=== PATIENT | male | born 1975 | race American Indian/Alaskan Native ===

== ENCOUNTER 2017-08-06 19:31 | Emergency (ER) | payer MEDICAID ==
[2017-08-06 20:27] VITALS: BP 156/86; PULSE 88; RESP 18; TEMP 98.4
[2017-08-06 20:28] VITALS: O2SAT 97
--- NOTE | 2017-08-06 20:28 | C.PDOC ---
History Of Present Illness 42 year old male with PMHx of migraines presents to the ED c/o intermittent headaches that mostly occur in the morning after her wakes up. Patient also c/o bilateral upper back pain. Patient has not taken any medication for the pain. Patient denies URI symptoms, recent travel, photophobia, neck pain, blurry vision, weakness, numbness. Time Seen by Provider: 08/06/17 19:55 Chief Complaint (Nursing): Back Pain History Per: Patient History/Exam Limitations: no limitations Onset/Duration Of Symptoms: Days Current Symptoms Are (Timing): Still Present Quality Of Discomfort: "Pain" Severity: None Associated Symptoms: None Recent travel outside of the [place]: No Additional History Per: Patient Past Medical History Reviewed: Historical Data, Nursing Documentation, Vital Signs Vital Signs: Last Vital Signs Temp 98.4 F 08/06/17 20:27 Pulse 88 08/06/17 20:27 Resp 18 08/06/17 20:27 BP 156/86 H 08/06/17 20:27 Pulse Ox 97 08/06/17 23:00 - Medical History PMH: Bipolar Disorder, Schizophrenia Surgical History: No Surg Hx Family History: States: No Known Family Hx - Social History Hx Alcohol Use: Yes Hx Substance Use: No - Immunization History Hx Tetanus Toxoid Vaccination: No Hx Influenza Vaccination: No Hx Pneumococcal Vaccination: No Review Of Systems Constitutional: Negative for: Fever, Chills Eyes: Negative for: Vision Change ENT: Negative for: Nose Congestion, Throat Pain Cardiovascular: Negative for: Chest Pain Respiratory: Negative for: Shortness of Breath Skin: Negative for: Rash Neurological: Positive for: Headache. Negative for: Weakness, Numbness, Dizziness Physical Exam - Physical Exam Appears: Non-toxic, No Acute Distress Skin: Normal Color, Warm, Dry Head: Atraumatic, Normacephalic Eye(s): bilateral: Normal Inspection, PERRL, EOMI Ear(s): Bilateral: Normal Nose: No Discharge Oral Mucosa: Moist Neck: Normal ROM, No Midline Cervical Tenderness, Supple Back: No CVA Tenderness, No Paraspinal Tenderness Extremity: Normal ROM, No Tenderness, No Swelling Neurological/Psych: Oriented x3, Normal Speech, Normal Cognition, Normal Motor, Normal Sensation Gait: Steady ED Course And Treatment O2 Sat by Pulse Oximetry: 97 (ON RA) Pulse Ox Interpretation: Normal Progress Note: On reassessment, patient is resting comfortably, and is in no acute distress. Patient was instructed to follow up with physician/clinic in 1- 2 days for further evaluation. Disposition Counseled Patient/Family Regarding: Diagnosis, Need For Followup, Rx Given - Disposition Disposition: HOME/ ROUTINE Disposition Time: 20:26 Condition: STABLE Additional Instructions: Please follow up with PMD Take medications as directed Return to ER if worse Prescriptions: Acetaminophen/Butalbital/Caf [Fioricet] 1 tab PO TID PRN #14 tab PRN Reason: Headache Instructions: Migraine Headache (DC) Forms: [employer] (Greek) - Clinical Impression Clinical Impression: Migraine headache - PA / DIRECTOR OF EARLY CHILDHOOD EDUCATION / Resident Statement MD/DO has reviewed & agrees with the documentation as recorded. - Scribe Statement The provider has reviewed the documentation as recorded by the Scribe Reno Fermin All medical record entries made by the Scribe were at my direction and personally dictated by me. I have reviewed the chart and agree that the record accurately reflects my personal performance of the history, physical exam, medical decision making, and the department course for this patient. I have also personally directed, reviewed, and agree with the discharge instructions and disposition.
== END 2017-08-06 20:41 | disposition home or self-care (01) ==
LOC: C.ER 19:31
DX: G43.909 Migraine, unspecified, not intractable, without status migrainosus (principal); F20.9 Schizophrenia, unspecified

== ENCOUNTER 2018-03-10 14:05 | Emergency (ER) | payer MEDICAID ==
[2018-03-10 14:05] VITALS: BMI 27.3
[2018-03-10 15:02] VITALS: BP 121/75; PULSE 113; RESP 20; TEMP 99.2; O2SAT 99
--- NOTE | 2018-03-10 15:10 | C.PDOC ---
History Of Present Illness 43 year old male with PMHx of HIV presents to the ED requesting HIV medications. Reports he has been off his HIV medications for a while because he was binging on cocaine and PCP. States he wants to restart taking his medications again. Denies any physical complaints. PMD: Dr. Davonte Montenegro Time Seen by Provider: 03/10/18 14:56 Chief Complaint (Nursing): Med Refill History Per: Patient History/Exam Limitations: no limitations Past Medical History Reviewed: Historical Data, Nursing Documentation, Vital Signs Vital Signs: Last Vital Signs Temp 99.2 F 03/10/18 14:57 Pulse 113 H 03/10/18 14:57 Resp 20 03/10/18 14:57 BP 121/75 03/10/18 14:57 Pulse Ox 99 03/10/18 14:57 - Medical History PMH: Bipolar Disorder, HIV, Schizophrenia Denies: Chronic Kidney Disease Surgical History: No Surg Hx Family History: States: No Known Family Hx - Social History Hx Alcohol Use: Yes Hx Substance Use: Yes - Immunization History Hx Tetanus Toxoid Vaccination: No Hx Influenza Vaccination: No Hx Pneumococcal Vaccination: No Review Of Systems Except As Marked, All Systems Reviewed And Found Negative. Constitutional: Negative for: Fever, Chills Cardiovascular: Negative for: Chest Pain Respiratory: Negative for: Shortness of Breath Gastrointestinal: Negative for: Nausea, Vomiting, Abdominal Pain, Diarrhea Musculoskeletal: Negative for: Back Pain Skin: Negative for: Rash Neurological: Negative for: Headache Physical Exam - Physical Exam Appears: Non-toxic, No Acute Distress Skin: Warm, Dry Head: Atraumatic, Normacephalic Eye(s): bilateral: Other (pinpoint pupils ) Nose: Normal Oral Mucosa: Moist Cardiovascular: Rhythm Regular Respiratory: No Rales, No Rhonchi, No Wheezing Gastrointestinal/Abdominal: Soft, No Tenderness Extremity: Bilateral: Atraumatic, Normal Color And Temperature, Normal ROM Neurological/Psych: Oriented x3, Normal Speech Gait: Steady ED Course And Treatment O2 Sat by Pulse Oximetry: 99 (RA) Pulse Ox Interpretation: Normal Medical Decision Making Medical Decision Makin Spoke with Dr Dr. Davonte Montenegro's office. Dr. Montenegro wants to see patient. Disposition Counseled Patient/Family Regarding: Diagnosis, Need For Followup, Rx Given - Disposition Referrals: Davonte Montenegro MD [Medical Doctor] - Disposition: HOME/ ROUTINE Disposition Time: 15:09 Condition: STABLE Prescriptions: Dolutegravir Sodium [Tivicay] 50 mg PO DAILY #3 tab Emtricitabine/Tenofovir Diso [Truvada 200 MG-300 MG] 1 tab PO DAILY #3 tab Forms: [facility] (Thai), General Discharge Instructions - POA Present On Arrival: None - Clinical Impression Clinical Impression: Review of medication
== END 2018-03-10 15:24 | disposition home or self-care (01) ==
LOC: C.ER 14:05
DX: Z76.0 Encounter for issue of repeat prescription (principal); F20.9 Schizophrenia, unspecified; F31.9 Bipolar disorder, unspecified; Z21 Asymptomatic human immunodeficiency virus [HIV] infection status